=== PATIENT | male | born 1930 | race African-American/Black ===

== ENCOUNTER 2017-04-08 13:22 | Outpatient (CLI) | payer MEDICARE ==
--- NOTE | 2017-04-08 15:57 | Ultrasound Report ---
ULTRASOUND RENAL INDICATION: CKD, HTN. COMPARISON: None similar. FINDINGS: Renal sonography suggests moderately increased renal cortical echogenicity. Grossly preserved contours. No hydronephrosis. Approximately 4.2 x 3.6 cm right hepatic lobe cyst inferiorly incidentally seen as on image 16. RIGHT KIDNEY measures 8.5 x 3.6 x 4 cm with cortical thickness of 1.1 cm. At least 2 right upper to mid renal cortical cysts range between 0.6-1 cm. LEFT KIDNEY estimated at 8.9 x 4.7 x 4.4 cm with cortical thickness of 1.1 cm. At least 2 renal cysts superiorly, the larger approximately 1.8 x 1.4 cm laterally, image 23 while the smaller cortical cyst is approximately 1.1 cm. URINARY BLADDER suboptimally distended and assessed with a TURP defect not excluded. CONCLUSION: No acute renal sonographic abnormality, though underlying medical renal disease, bilateral renal cysts and a right hepatic cyst incidentally noted, as described. Please correlate. Thank you for the opportunity to participate in this patient's care.
== END 2017-04-08 13:23 | disposition home or self-care (01) ==
LOC: US 13:22
PROVIDERS: ATTEND Family Medicine
DX: I12.9 Hypertensive chronic kidney disease with stage 1 through stage 4 chronic kidney disease, or unspecified chronic kidney disease (principal); N18.3 Chronic kidney disease, stage 3 (moderate); N40.0 Benign prostatic hyperplasia without lower urinary tract symptoms; N28.1 Cyst of kidney, acquired; K76.89 Other specified diseases of liver; N32.89 Other specified disorders of bladder
CPT/HCPCS: 76770